=== PATIENT | female | born 1930 ===

== ENCOUNTER 2018-01-03 09:47 | Emergency (ER) | payer OTHER ==
[~2018-01-03] VITALS: Ht 152.4 cm; Wt 45.4 kg
[2018-01-03] MEDS ORDERED: AVAPRO75 MG (10:04)
[2018-01-03] MEDS ORDERED: IBERSALTAN PO (10:05)
[2018-01-03] MEDS ORDERED: DICLOFENAC SODI50 MG PO (13:18)
[2018-01-03] MEDS ORDERED: MEDROLPACK PO (13:18)
== END 2018-01-03 13:14 | disposition home or self-care (01) ==
LOC: ER 09:47
DX: M54.5 Low back pain (principal); N39.0 Urinary tract infection, site not specified